=== PATIENT | male | born 1975 | race Caucasian/White ===

== ENCOUNTER 2017-10-14 10:56 | Day surgery (SDC) | payer MEDICARE, MEDICAID ==
[~2017-10-14 10:56] MED LIST: CEFAZOLIN 1 GM/D5W RTU 1 GM/50 ML RTUPB IV PRN
[2017-10-14] MEDS ORDERED: FENTANYL CITRATE INJ/PF 100 MCG/2 ML AMPUL ONE (12:13)
[2017-10-14] MEDS ORDERED: MIDAZOLAM 2 MG/2 ML INJ ONE (12:13)
[2017-10-14] MEDS ORDERED: ACETAMINOPHEN 100 ML IV ONE (12:13)
[2017-10-14] MEDS ORDERED: PROPOFOL INJ 200 MG/20 ML VIAL IV ONE (12:14)
[2017-10-14] MEDS ORDERED: LIDOCAINE 2% INJ-PF (20 MG/ML) 10 ML AMPUL ONE (12:14)
[2017-10-14] MEDS ORDERED: BUPIVACAINE HCL 0.5 % INJ/PF 30 ML SDV ONE (12:16)
[2017-10-14] MEDS ORDERED: BUPIVACAINE INJ/PF LIPOSOME/PF 266 MG/20 ML SDV ONE (12:16)
[2017-10-14] MEDS ORDERED: LIDOCAINE 2% INJ (20 MG/ML) 20 ML MDV ONE (12:16)
[2017-10-14] MEDS ORDERED: POLYMYXIN B SULFATE INJ 500000 UNIT VIAL ONE (12:16)
[2017-10-14] MEDS ORDERED: BACITRACIN INJ 50,000 UNIT VIAL ONE (12:16)
[2017-10-14] MEDS ORDERED: NORMAL SALINE INJ/PF 0.9% 10 ML SDV ONE (12:16)
[2017-10-14] MEDS ORDERED: LIDOCAINE 1%/EPINEPHRINE INJ 20 ML VIAL ONE (12:52)
--- NOTE | 2017-10-14 14:44 | SURGICARE OPERATIVE REPORT E ---
[facility] Operative Report NAME: ELIZABETH NELSON AGE: 42Y DATE OF SURGERY: 10/14/2017 ROOM: PREOPERATIVE DIAGNOSIS: Enlarged bone of the first toe of the right foot. POSTOPERATIVE DIAGNOSIS: Enlarged bone of the first toe of the right foot. PROCEDURE PERFORMED: Excision of the distal phalanx with distal flap of the first toe of the right foot. SURGEON: VEDA URENA DPM EVALUATION ENGINEER SURGEON: HUSSEIN CAI DPM PROCEDURE: On 10/14/2017, the patient was admitted to [facility] with complaints of painful first toe right foot and was taken to the operating room where following induction of intravenous sedation and regional local anesthesia, the patient's right foot and leg were prepped in the usual sterile manner. Sterile draping was completed. A timeout was performed and the following procedure was performed. Attention was directed to the patient's first toe of the right foot where there was noted to be deformity of the distal aspect. There were several scars on the overlying interphalangeal joint and the first metatarsophalangeal joint from previous surgeries. There was distal hyperkeratosis of the toe. It was felt at this time just to do phalangectomy of the distal phalanx with partial phalangectomy of the proximal phalanx as needed for closure of the wound. Attention was directed to the dorsal aspect of the patient's first toe where a transverse incision was placed approximately overlying the interphalangeal joint. It was carried transversely approximately to the midline of the medial and lateral margins of the toe and was then redirected distally towards the tip of the toe and circumferentially around creating a fishmouth-type incision completely circumscribing the remaining portion of the hallux toenail. The entire portion of the nail and skin then was removed from the wound en toto. The bone was examined and there were noted to be multiple osteophytes in multiple directions, a tremendous amount of scar tissue and only a partial fusion of the interphalangeal joint was felt at this time. The decision was distal phalanx was the appropriate procedure. Utilizing a Banegas sagittal saw, the phalanx was osteotomized approximately at the partially fused interphalangeal joint in the transverse fashion. The bone was then split length grant from proximal to distal and fragments of the bone were removed from the wound en toto. The long flexor tendon was identified, undermined, and preserved. At that time, the area was flushed with copious amounts of sterile antibiotic solution and inspected for any soft tissue osseous debris. The wound was further inspected. The distal flap was approximated and it was felt that additional portion of bone needed to be removed from the distal portion of the proximal phalanx. At that time, utilizing the sagittal saw, approximately 3 mm of bone was then removed from the distal aspect of the proximal phalanx. through a transverse osteotomy. The bone was removed from the wound en toto. The area was then flushed with copious amounts of sterile antibiotic solution and inspected for any soft tissue osseous debris with none being noted. The flap was then approximated and felt that there was good coverage on the distal most aspect, and at that time, the closure of the flap was then commenced with a combination of simple interrupted suture of 5-0 nylon and interrupted horizontal mattress suture of 5-0 nylon. The capillary refilling time was noted to be excellent on the flap and it was felt that the flap should heal without complication. At that time, sterile dressing consisting of Jim silk, 4 x 4s, Conform, Kerlix, and Coban was applied to the patient's right foot. The patient tolerated surgery and anesthesia well and was taken to recovery room where further monitored by the Anesthesia Department. DICTATING PHYSICIAN: VEDA URENA DPM [id number] Y#: [id number] ID: [id number] JOB#: [id number] ACCT: [id number] cc:VEDA URENA DPM > MTDD
--- NOTE | 2017-10-14 14:53 | SURGICARE DISCHARGE SUMMARY E ---
[facility] Discharge Summary NAME: ELIZABETH NELSON AGE: 42Y ADMITTED: 10/14/2017 DISCHARGED: 10/14/2017 Procedure: Phalangectomy distal phalanx with flap first toe right foot. HOSPITAL COURSE: The patient was admitted to [facility] for complaint of painful first toe of the right foot and was taken to the operating room where patient had partial phalangectomy done of the first toe of the right foot. The patient tolerated surgery and anesthesia well and was later discharged from [facility] with prescriptions for Percocet 10 mg, Phenergan 25 mg, and cephalexin 500 mg. Given postop surgical shoe, postop instructions, including rest, ice, and elevation, and was given a followup appointment for 1 week. DICTATING PHYSICIAN: VEDA URENA DPM [id number] PHY#: [id number] ID: [id number] JOB#: [id number] ACCT: [id number] cc:VEDA URENA DPM > MTDD
--- NOTE | 2017-10-16 09:58 | RADIOLOGY REPORT (SQ) ---
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 TECHNIQUE: Intra-operative images acquired during surgical procedure to evaluate progress. NUMBER OF IMAGES: 3 digital radiographs LIMITATIONS: None. FINDINGS: Imaging during amputation of the right great toe distal phalanx. A transverse osteotomy a t the proximal phalanx near the interphalangeal joint has been performed. Please see the operative r eport for further details IMPRESSION: Intra procedural imaging and fluoro COMMENT: Quality ID [id number]: Final reports for procedures using fluoroscopy that document radiation exp osure indices, or exposure time and number of fluorographic images (if radiation exposure indices are not available) Please consult full operative report of the attending physician for description of the procedure. TECHNICAL DOCUMENTATION: JOB ID: [id number] [employer]- All Rights Reserved Reading location - IP/workstation name: [email or web address]
--- NOTE | 2017-10-16 09:58 | RADIOLOGY REPORT (SQ) ---
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 TECHNIQUE: Intra-operative images acquired during surgical procedure to evaluate progress. NUMBER OF IMAGES: 3 digital radiographs LIMITATIONS: None. FINDINGS: Imaging during amputation of the right great toe distal phalanx. A transverse osteotomy a t the proximal phalanx near the interphalangeal joint has been performed. Please see the operative r eport for further details IMPRESSION: Intra procedural imaging and fluoro COMMENT: Quality ID [id number]: Final reports for procedures using fluoroscopy that document radiation exp osure indices, or exposure time and number of fluorographic images (if radiation exposure indices are not available) Please consult full operative report of the attending physician for description of the procedure. TECHNICAL DOCUMENTATION: JOB ID: [id number] [employer]- All Rights Reserved Reading location - IP/workstation name: [facility]
== END 2017-10-14 15:02 | disposition home or self-care (01) ==
LOC: SC 10:56
PROVIDERS: ATTEND Preventive Medicine Undersea and Hyperbaric Medicine
DX: M89.371 Hypertrophy of bone, right ankle and foot (principal); J45.909 Unspecified asthma, uncomplicated; Z86.718 Personal history of other venous thrombosis and embolism; Z79.899 Other long term (current) drug therapy
CPT/HCPCS: 73620; 28153; J2250; J3490 ×6; J0690; J3010; J2704; J0131; 01480; C9290